=== PATIENT | female | born 1985 | race Asian ===

== ENCOUNTER 2016-11-09 09:04 | Emergency (ER) | payer OTHER ==
[2016-11-09 10:13] VITALS: BP 107/49
--- NOTE | 2016-11-09 10:29 | UC ---
Throat Pain/Nasal Addy HPI - HPI Summary HPI Summary: ST starting 5 days ago. 3 and 4 days ago had fever, aches, and chills. Developed cough on day 2 or 3, which worsened last night. No fever since 3 days ago. Denies wheezing or trouble breathing. ST severe upon waking and late at night. - History of Current Complaint Chief Complaint: UCRespiratory Stated Complaint: SORE THROAT COUGH Time Seen by Provider: 11/09/16 10:16 Hx Obtained From: Patient Hx Last Menstrual Period: 11/08/15 ?: No Onset/Duration: Gradual Onset, Lasting Days Severity: Moderate Cough: Nonproductive Associated Signs & Symptoms: Positive: Fever. Negative: Wheezing - Allergies/Home Medications Allergies/Adverse Reactions: Allergies Allergy/AdvReac Type Severity Reaction Status Date / Time No Known Allergies Allergy Verified 11/09/16 10:13 Home Medications: Home Medications NK [No Home Medications Reported] 11/09/16 [History Confirmed 11/09/16] PMH/Surg Hx/FS Hx/Imm Hx Previously Healthy: Yes Endocrine History Of: Denies: Thyroid Disease Other History Of: Negative For: Anticoagulant Therapy - Surgical History Surgical History: None - Family History Known Family History: Positive: None - pt denies - Social History Alcohol Use: Occasionally Substance Use Type: None Smoking Status (MU): Never Smoked Tobacco Review of Systems Constitutional: Fever, Chills Skin: Negative Eyes: Negative ENT: Sore Throat Respiratory: Cough Cardiovascular: Negative Gastrointestinal: Negative Genitourinary: Negative Motor: Negative Neurovascular: Negative Musculoskeletal: Negative Neurological: Negative Psychological: Negative All Other Systems Reviewed And Are Negative: Yes Physical Exam Triage Information Reviewed: Yes Appearance: Well-Appearing, No Pain Distress, Well-Nourished Vital Signs: Initial Vital Signs Temp 98.7 F 11/09/16 10:10 Pulse 77 11/09/16 10:10 Resp 16 11/09/16 10:10 BP 107/49 11/09/16 10:10 Pulse Ox 100 11/09/16 10:10 Vital Signs Reviewed: Yes Eye Exam: Normal Eyes: Positive: Conjunctiva Clear ENT: Positive: Hearing grossly normal, Pharyngeal erythema, TMs normal. Negative: Nasal congestion, Nasal drainage, Tonsillar swelling, Tonsillar exudate Dental Exam: Normal Neck exam: Normal Neck: Positive: Supple, Nontender, No Lymphadenopathy Respiratory Exam: Other - frequent dry cough Respiratory: Positive: Lungs clear, Normal breath sounds, No respiratory distress, No accessory muscle use Cardiovascular Exam: Normal Cardiovascular: Positive: RRR, No Murmur Musculoskeletal Exam: Normal Neurological Exam: Normal Neurological: Positive: Alert, Muscle Tone Normal Psychological Exam: Normal Skin Exam: Normal Throat Pain/Nasal Course/Dx - Differential Dx/Diagnosis Provider Diagnoses: viral syndrome Discharge - Discharge Plan Condition: Stable Disposition: HOME Patient Education Materials: Viral Syndrome (ED) Additional Instructions: Rapid strep negative. Get plenty of rest and increase your fluids. I recommend taking ibuprofen 600mg at bedtime along with gargling with a numbing agent ( such as chloraseptic or listerine). If you have fever, trouble breathing, or sudden worsening, please call or return. It may take another week or more for your throat to feel better, and coughs can persist 2-3 weeks.
== END 2016-11-09 10:42 | disposition home or self-care (01) ==
LOC: UCEAST 09:04
DX: B34.9 Viral infection, unspecified (principal)
CPT/HCPCS: 87651; 99211; G0463

== ENCOUNTER 2018-08-21 15:25 | Emergency (ER) | payer OTHER ==
[2018-08-21 15:34] VITALS: BP 103/61
--- NOTE | 2018-08-21 15:47 | UC ---
Complaint Female HPI - HPI Summary HPI Summary: 33 yo female presents with urinary burning, pressure, and some noticeable blood in her urine since last night. She is currently trying to get with her and is ovulating this week so she has had more intercourse than usual. Last had a UTI many years ago, but this feels similar. Denies fever, chills, abdominal pain, n/v, or flank pain. - History Of Current Complaint Chief Complaint: UCGU Stated Complaint: POSS UTI Time Seen by Provider: 08/21/18 15:47 Hx Obtained From: Patient Hx Last Menstrual Period: 4 wks ago Onset/Duration: Sudden Onset Timing: Constant Severity Initially: Moderate Severity Currently: Moderate Pain Intensity: 7 Pain Scale Used: 0-10 Numeric - Allergies/Home Medications Allergies/Adverse Reactions: Allergies Allergy/AdvReac Type Severity Reaction Status Date / Time No Known Allergies Allergy Verified 08/21/18 15:34 PMH/Surg Hx/FS Hx/Imm Hx - Additional Past Medical History Additional PMH: None Other History Of: Negative For: Anticoagulant Therapy - Surgical History Surgical History: Yes Surgery Procedure, Year, and Place: Ovarian cyst - Family History Known Family History: Positive: None - pt denies - Social History Occupation: Employed Full-time Lives: With Family Alcohol Use: Occasionally Substance Use Type: None Smoking Status (MU): Never Smoked Tobacco Review of Systems Constitutional: Negative Skin: Negative Respiratory: Negative Cardiovascular: Negative Genitourinary: Dysuria, Hematuria, Frequency, Urgency Neurovascular: Negative Neurological: Negative Psychological: Negative All Other Systems Reviewed And Are Negative: Yes Physical Exam - Summary Physical Exam Summary: GENERAL: NAD. WDWN. No pain distress. SKIN: No rashes, sores, lesions, or open wounds. NECK: Supple. Nontender. No lymphadenopathy. CHEST: CTAB. No r/r/w. No accessory muscle use. Breathing comfortably and in no distress. CV: RRR. Without m/r/g. Pulses intact. Cap refill <2seconds ABDOMEN: Soft. NTTP. No distention or guarding. No CVA tenderness. Bowel sounds present NEURO: Alert. PSYCH: Age appropriate behavior. Triage Information Reviewed: Yes Vital Signs: Initial Vital Signs Temp 98.2 F 08/21/18 15:31 Pulse 75 08/21/18 15:31 Resp 12 08/21/18 15:31 BP 103/61 08/21/18 15:31 Pulse Ox 100 08/21/18 15:31 Laboratory Tests 08/21/18 15:44 POC Urine Color Red A POC Urine Clarity Cloudy POC Urine pH 6.0 POC Ur Specif [place] <= 1.005 L POC Urine Protein 2+ A POC Ur Glucose (UA) Negative POC Urine Ketones Negative POC Urine Blood 3+ A POC Urine Nitrite Negative POC Urine Bilirubin Negative POC Urine Urobilinogen 0.2 POC U Leukocyte Esteras 2+ A Vital Signs Reviewed: Yes Complaint Female Dx - Course Course Of Treatment: Urine negative. Will treat for UTI with Keflex as it is cat B. - Differential Dx/Diagnosis Provider Diagnoses: UTI Discharge - Sign-Out/Discharge Documenting (check all that apply): Patient Departure All imaging exams completed and their final reports reviewed: No Studies - Discharge Plan Condition: Stable Disposition: HOME Prescriptions: Cephalexin CAP* [Keflex CAP*] 500 mg PO BID #10 cap Patient Education Materials: Urinary Tract Infection in Women (DC) Referrals: No Primary Care Phys,NOPCP [Primary Care Provider] - Additional Instructions: If you develop a fever, shortness of breath, chest pain, new or worsening symptoms - please call your PCP or go to the ED. - Billing Disposition and Condition Condition: STABLE Disposition: Home
== END 2018-08-21 16:04 | disposition home or self-care (01) ==
LOC: UCEAST 15:25
DX: N39.0 Urinary tract infection, site not specified (principal)
CPT/HCPCS: 81003; 87077; 87086; 87186; 99212; G0463

== ENCOUNTER 2018-09-12 10:33 | Emergency (ER) | payer OTHER ==
[2018-09-12 10:46] VITALS: BP 96/27
--- NOTE | 2018-09-12 12:05 | UC ---
Back Pain HPI - HPI Summary HPI Summary: 33-year-old woman comes in to clinic today with a chief complaint of low back and coccyx area pain. 3 days ago she slipped and fell and landed on her low back and coccyx. She fell again yesterday and similar area. Pain is worse with sitting and movement. Better with standing and rest. She's been able have normal bowel movements without any problems. No weakness or numbness. Walking does not bother her hips or her lumbar spine. Denies any other injuries. - History of Current Complaint Chief Complaint: UCBackPain Stated Complaint: BACK PAIN Time Seen by Provider: 09/12/18 11:03 Hx Last Menstrual Period: 09/08/18 Pain Intensity: 7 - Allergies/Home Medications Allergies/Adverse Reactions: Allergies Allergy/AdvReac Type Severity Reaction Status Date / Time No Known Allergies Allergy Verified 08/21/18 15:34 PMH/Surg Hx/FS Hx/Imm Hx Previously Healthy: Yes Other History Of: Negative For: Anticoagulant Therapy - Surgical History Surgical History: Yes Surgery Procedure, Year, and Place: Ovarian cyst - Family History Known Family History: Positive: None - pt denies - Social History Alcohol Use: Occasionally Substance Use Type: None Smoking Status (MU): Never Smoked Tobacco Review of Systems Constitutional: Negative Skin: Negative Eyes: Negative ENT: Negative Respiratory: Negative Cardiovascular: Negative Gastrointestinal: Negative Motor: Negative Neurovascular: Negative Musculoskeletal: Other: - SEE HPI Neurological: Negative Psychological: Negative Is Patient Immunocompromised?: No All Other Systems Reviewed And Are Negative: Yes Physical Exam Triage Information Reviewed: Yes Completion Of Physical Exam Limited Due To: Extremis Appearance: Well-Nourished, Pain Distress - MILD WITH SITTING Vital Signs: Initial Vital Signs Temp 98 F 09/12/18 10:43 Pulse 73 09/12/18 10:43 Resp 16 09/12/18 10:43 BP 96/27 09/12/18 10:43 Pulse Ox 99 09/12/18 10:43 Vital Signs Reviewed: Yes Eye Exam: Normal Neck exam: Normal Neck: Positive: Supple Respiratory: Positive: No respiratory distress Musculoskeletal: Positive: Other: - Patient is tender to palpation in the upper gluteal fold. There is no erythema of the lumbar spine is nontender to palpation. The hips and legs are nontender to palpation is full range of motion and full strength in the legs. No sensation deficits. Neurological Exam: Normal Neurological: Positive: Alert, Muscle Tone Normal Psychological Exam: Normal Psychological: Positive: Age Appropriate Behavior Skin Exam: Normal Back Pain Course/Dx - Course Course Of Treatment: Order Information: SACRUM/COCCYX 2+ VWS. Accession Number : [id number]. CPT: 20385. HISTORY: pain s/p fall. COMPARISONS: None. VIEWS : 3 , frontal, lateral lateral, and outlet views of the sacrum and coccyx. FINDINGS: BONE DENSITY: Normal. BONES: There is no displaced fracture. The sacral arches are intact. JOINTS: There is no arthropathy. ALIGNMENT: There is no dislocation. SOFT TISSUES: Unremarkable. OTHER FINDINGS: None. IMPRESSION: NO ACUTE OSSEOUS INJURY OF THE SACRUM AND COCCYX. PLAIN FILMS ARE RELATIVELY INSENSITIVE. TO NONDISPLACED FRACTURES OF THE SACRUM AND COCCYX. IF THERE IS PERSISTENT CLINICAL. CONCERN FOR SACROCOCCYGEAL OSSEOUS PATHOLOGY, BONE SCANNING MAY BE MORE SENSITIVE. . <Electronically signed by Daniel Jones MD in [place]> 03/25 [id number]. I discussed the x-ray results with the patient. We talked about anti-inflammatories and a doughnut pillow. - Differential Dx/Diagnosis Provider Diagnoses: COCCYX CONTUSION Discharge - Sign-Out/Discharge Documenting (check all that apply): Patient Departure All imaging exams completed and their final reports reviewed: Yes - Discharge Plan Condition: Stable Disposition: HOME Patient Education Materials: Coccyx Injury (ED) [place]errals: [facility] [place] [facility] [place] [facility] [place]Outside] Additional Instructions: FOLLOW UP WITH YOUR DOCTOR IF NOT COMPLETELY IMPROVED. GET RECHECKED FOR ANY WORSENING OF YOUR CONDITION OR QUESTIONS OR CONCERNS. - Billing Disposition and Condition Condition: STABLE Disposition: Home
== END 2018-09-12 12:48 | disposition home or self-care (01) ==
LOC: UCEAST 10:33
DX: S30.0XXA Contusion of lower back and pelvis, initial encounter (principal); W01.0XXA Fall on same level from slipping, tripping and stumbling without subsequent striking against object, initial encounter; Y92.9 Unspecified place or not applicable
CPT/HCPCS: 72220; 99211; G0463